=== PATIENT | male | born 1990 | race African-American/Black ===

== ENCOUNTER 2024-04-22 05:26 | Emergency (ER) | payer MEDICAID, SELFPAY ==
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
[2024-04-22 05:39] VITALS: BP 154/103; PULSE 97; RESP 18; TEMP 36.4; O2SAT 96; BMI 25.1
[2024-04-22 06:16] VITALS: BP 138/82; PULSE 86; RESP 16; TEMP 36.4; O2SAT 98
== END 2024-04-22 06:17 | disposition home or self-care (01) ==
PROVIDERS: Emergency Provider Emergency Medicine
DX: S01.511A Laceration without foreign body of lip, initial encounter (principal); Y04.1XXA Assault by human bite, initial encounter
CPT/HCPCS: 12013; 99281; 99283

== ENCOUNTER 2024-12-06 21:59 | Emergency (ER) | payer OTHER, SELFPAY ==
[2024-12-06 22:15] VITALS: BP 142/83; PULSE 110; RESP 16; O2SAT 96; BMI 24.4
[2024-12-06] MEDS: MAG HYDROX/ALUMINUM/SIMETH SUS 20 ML, LIDOCAINE VISCOUS 2% 15 ML PO (22:35)
[2024-12-06 22:42] LABS: Add Manual Diff / Slide Review NO; Basophils Absolute Auto 100 /uL (0-100); Basophils Percent Auto 0.6 % (0-2); Eosinophils Absolute Auto 100 /uL (0-450); Eosinophils Percent Auto 0.9 % (2-4); Hematocrit 50.7 % (41-53); Lymphocytes Absolute Auto 2500 /uL (1100-4500); Lymphocytes Percent Auto 23.9 % (25-40); Mean Corpuscular HGB Conc 33.5 % (30-36); Mean Corpuscular Hemoglobin 28.7 PG (26-34); Mean Corpuscular Volume 85.5 fL (80-100); Monocytes Absolute Auto 800 /uL (0-900); Monocytes Percent Auto 7.9 % (3-14); Neutrophils Absolute Auto 6800 /uL (1500-7000); Neutrophils Percent Auto 66.7 % (50-75); Platelet Count 258 X10^3/uL (150-400); Red Blood Cell Count 5.93 X10^6/uL (4.5-5.9); Red Cell Distribution Width 13.1 % (11.6-14.8); White Blood Cell Count 10.3 X10^3/uL (4.5-11.0)
[2024-12-06 22:49] LABS: Alanine Aminotransferase 49 IU/L (<50); Albumin 5.1 g/dL (3.5-5.0); Albumin Globulin Ratio 1.3 (1.0-2.8); Alkaline Phosphatase 81 U/L (38-126); Aspartate Aminotransferase 63 IU/L (17-59); Blood Urea Nitrogen 12 mg/dL (9-20); Carbon Dioxide 21 mmol/L (22-32); Chloride 98 mmol/L (98-107); Estimated Glomerular Filt Rate > 60 mL/min (>60); Glucose 139 mg/dL (70-100); HEMOLYSIS 26 (0-50); Lipase 113 U/L (23-300); Potassium 3.7 mmol/L (3.4-5.1); Sodium 137 mmol/L (137-145); Total Protein 9.1 g/dL (6.3-8.2)
--- NOTE | 2024-12-07 01:05 | DI.RAD.S_ITS ---
PROCEDURE: XR CHEST 1V INDICATIONS: Chest pain TECHNIQUE: One view of the chest was acquired. COMPARISON: None. FINDINGS AND IMPRESSION: No dense consolidation or pleural effusion on this single view study. Normal heart size. Unremarkable osseous structures. Dictated by: Kyle Jimenes M.D. on 12/07/2024 at 1:34 Approved by: Kyle Jimenes M.D. on 12/07/2024 at 1:34
--- NOTE | 2024-12-07 01:07 | ED.ABDPAIN ---
HPI - Abdominal Pain General Chief Complaint: Abdominal Pain Stated Complaint: chest pain Time Seen by Provider: 12/07/24 00:57 Source: patient Mode of arrival: Ambulatory History of Present Illness HPI narrative: 34-year-old male without any significant past medical history presents to the emergency department from home for evaluation of epigastric pain, this has been ongoing persistent for the past week. He states that he feels pressure/burning no nausea or vomiting no radiation nothing making it better or worse. He states that given persistent symptoms decided come into the ED for further evaluation treatment. Patient denies any other symptoms his headache visual disturbance shortness of breath fever chills or any other GI/ symptoms at this time. Related Data Previous Rx's Medication Instructions Recorded famotidine 20 mg tablet 20 mg PO DAILY 1 month #30 tabs 12/07/24 Allergies Allergy/AdvReac Type Severity Reaction Status Date / Time No Known Drug Allergies Allergy Verified 12/06/24 22:14 Review of Systems Review of Systems Narrative: General: Denies fever, chills, weight loss HEENT: Denies headache, eye drainage, eye irritation, head trauma, sore throat, voice change Cardiovascular: Positive chest pain, denies palpitations tachycardia Respiratory: Denies any shortness of breath, cough, wheeze, stridor GI/: Positive abdominal pain, denies nausea, vomiting, diarrhea, bright red blood per rectum, melanotic stools, urinary frequency, urinary retention, dysuria, hematuria MSK: Denies any joint pain, muscle pains, swelling Skin: Denies any rashes, lesions, discoloration Neuro: Denies any headache, lightheadedness, dizziness, fainting, weakness Psych: Denies SI/HI Patient History Social History Smoking Status: Never smoker Smoking Status: Never smoker alcohol intake frequency: a few times a week Exam Narrative Exam Narrative: General: Cooperative, comfortable, well-developed, not in acute distress HEENT: Normocephalic, atraumatic, PERRLA, normal sclera, eyelids normal, Neck: Active full range of motion, atraumatic Chest: Normal to inspection, negative crepitus, no overlying erythema ecchymosis Respiratory: Normal respiratory effort, not in acute respiratory distress, clear to auscultation bilaterally negative cough, wheeze, tachypnea, rhonchi, rales Cardiology: Regular rate rhythm negative gallop, murmur, rubs GI/: Normal to inspection, soft, nonrigid, mild tenderness to palpation epigastric region, exam deferred MSK: Full range of active range of motion of all 4 extremities, atraumatic Skin: No rashes lesions noted Neuro: Alert awake oriented x3, moves all 4 extremities spontaneously, cranial nerves intact, able to answer all questions appropriately follows commands appropriately Psych: Cooperative, negative suicidal or homicidal ideations Initial Vital Signs Initial Vital Signs: Vital Signs Pulse Rate 110 H 12/06/24 22:15 Respiratory Rate 16 12/06/24 22:15 Blood Pressure 142/83 H 12/06/24 22:15 Pulse Oximetry 96 12/06/24 22:15 Oxygen Delivery Method Room Air 12/06/24 22:15 Course Orders Ordered: ED Orders 12/06/24 22:29 Complete Blood Count AUTO DIFF Stat Comprehensive Metabolic Panel Stat Lipase Stat 12/07/24 01:05 CXR [XR chest 1V] Stat Troponin & CK Cardiac Panel Stat 12/07/24 01:06 CT abdomen pelvis w con Stat Covid-19 + FLU A/B + RSV - PCR Stat MAG [Magnesium] Stat EKG-12 Lead Stat Ondansetron HCl (Ondansetron 4 Mg/2 Ml Inj) 4 mg IV NOW PRN PRN Reason: Nausea And Vomiting Ondansetron HCl (Ondansetron 4 Mg Odt) 4 mg PO NOW PRN PRN Reason: Nausea And Vomiting Discontinued Medications Al Hydrox/Mg Hydrox/Simethicone 20 ml/ Lidocaine HCl 15 ml 0 ml PO NOW ONE Stop: 12/06/24 22:31 Last Admin: 12/06/24 22:35 Dose: 35 ml Documented By: Famotidine (Famotidine 20 Mg/2 Ml Vial) 20 mg IV NOW ONE Stop: 12/07/24 01:07 Last Admin: 12/07/24 01:29 Dose: 20 mg Documented By: Sodium Chloride (Normal Saline 0.9%) 1,000 mls @ 1,000 mls/hr IV BOLUS ONE Stop: 12/07/24 02:05 Last Infusion: 12/07/24 02:06 Dose: Infused Documented By: Admin: 12/07/24 01:28 Dose: 1,000 mls/hr Documented By: AB Vital Signs Vital signs: Vital Signs - 8 hr 12/06/24 22:15 12/07/24 01:08 Pulse Rate 110 H 62 Respiratory Rate 16 16 Blood Pressure 142/83 H 121/80 Pulse Oximetry 96 99 Oxygen Delivery Method Room Air Room Air MDM - Abdominal Pain Differential Diagnosis Differential diagnosis: Likely gastroenteritis and other (ACS, pneumonia, GERD, pancreatitis, electrolyte abnormality) Lab Data 12/06/24 22:29 12/06/24 22:29 Labs: Lab Results 12/06/24 Range/Units 22:29 WBC 10.3 (4.5-11.0) X10^3/uL RBC 5.93 H (4.5-5.9) X10^6/uL Hgb 17.0 (13.5-17.5) g/dL Hct 50.7 (41-53) % MCV 85.5 (80-100) fL MCH 28.7 (26-34) PG MCHC 33.5 (30-36) % RDW 13.1 (11.6-14.8) % Plt Count 258 (150-400) X10^3/uL Neut % (Auto) 66.7 (50-75) % Lymph % (Auto) 23.9 L (25-40) % Mclennan % (Auto) 7.9 (3-14) % Eos % (Auto) 0.9 L (2-4) % Baso % (Auto) 0.6 (0-2) % Neut # (Auto) 6800 (5590-3368) /uL Lymph # (Auto) 2500 (6846-3755) /uL Mclennan # (Auto) 800 (0-900) /uL Eos # (Auto) 100 (0-450) /uL Baso # (Auto) 100 (0-100) /uL Sodium 137 (137-145) mmol/L Potassium 3.7 (3.4-5.1) mmol/L Chloride 98 (98-107) mmol/L Carbon Dioxide 21 L (22-32) mmol/L BUN 12 (9-20) mg/dL Creatinine 1.00 (0.66-1.25) mg/dL Estimated GFR > 60 (>60) mL/min BUN/Creatinine Ratio 12.0 (6-22) Glucose 139 H (70-100) mg/dL Calcium 10.0 (8.4-10.2) mg/dL Magnesium 2.1 (1.6-2.3) mg/dL Total Bilirubin 1.0 (0.2-1.3) mg/dL AST 63 H (17-59) IU/L ALT 49 (<50) IU/L Alkaline Phosphatase 81 (38-126) U/L Total Creatine Kinase 125 (55-170) U/L Troponin I < 0.012 (0.01-0.034) ng/mL Total Protein 9.1 H (6.3-8.2) g/dL Albumin 5.1 H (3.5-5.0) g/dL Globulin 4.0 (1.7-4.1) g/dL Albumin/Globulin Ratio 1.3 (1.0-2.8) Lipase 113 (23-300) U/L Point of care testing: Urine Dip Bedside Urine Glucose Negative Bedside Urine Bilirubin - Negative Bedside Urine Ketone +/- 5 Urine Specific [place] 1.015 Bedside Urine Occult Blood - Negative Bedside Urine pH 6 Bedside Urine Protein - Negative Bedside Urine Urobilinogen - Negative Bedside Urine Nitrite - Negative Bedside Urine Leukocytes - Negative Esterase Imaging Data Chest x-ray: Radiologist's Impression: [place] [address] XRay Report Signed Patient: Dixon Haynes MR#: [id number] : 1990 Acct:[id number] Age/Sex: 34 / M Date of Service: 12/07/24 Loc: ED Accession Number: [id number] Procedure: XR chest 1V Ordering Provider: Momo Deleon D.O. PROCEDURE: XR CHEST 1V INDICATIONS: Chest pain TECHNIQUE: One view of the chest was acquired. COMPARISON: None. FINDINGS AND IMPRESSION: No dense consolidation or pleural effusion on this single view study. Normal heart size. Unremarkable osseous structures. CT scan - abdomen/pelvis: Radiologist's Impression: [address] [address] [address] Scan Report Signed Patient: Dixon Haynes MR#: [id number] : 1990 Acct:[id number] Age/Sex: 34 / M Date of Service: 12/07/24 Loc: ED Accession Number: [id number] Procedure: CT abdomen pelvis w con Ordering Provider: Momo Deleon D.O. PROCEDURE: CT ABDOMEN PELVIS W CON INDICATIONS: Epigastric pain TECHNIQUE: After the administration of intravenous contrast, axial sections acquired from the lung bases to the pubic symphysis. Coronal and sagittal reformats were performed. For radiation dose reduction, the following was used: automated exposure control, adjustment of mA and/or kV according to patient size. COMPARISON: None. FINDINGS: Image quality: Diagnostic Lower chest: Unremarkable lung bases Normal heart size. Liver: Suspect hepatic steatosis Gallbladder and biliary system: Unremarkable, nondilated Pancreas: No ductal dilation Spleen: Nonenlarged Adrenals: No discrete nodules Kidneys: No solid mass. No hydronephrosis. Vessels and lymph nodes: The main portal vein is patent. No abdominal aortic aneurysm. No pathologic lymphadenopathy by size criteria. Bowel and peritoneum: No small bowel obstruction. No drainable ascites or abscess. No findings of active colitis. The appendix is nondilated. Body wall: Mild rectus diastasis Pelvis: Bladder and prostate are unremarkable on limited CT evaluation Bones: No aggressive appearing focal osseous finding IMPRESSION: No acute abdominal pelvic abnormality. Possible hepatic steatosis. Other findings above. ECG Data Interpretation: EKG interpreted by ED physician sinus 93 beats per minute QTC [address] changes no STEMI MDM Narrative Medical decision making narrative: Patient is a 34-year-old male without any significant past medical history presents for 1 week of epigastric pain described as burning pressure. Patient had lab work imaging EKG performed here in the emergency department, EKG nonischemic in nature, patient with heart score of 0, chest x-ray without any acute cardiopulmonary abnormalities Darren negative, CT scan without any acute findings, lab work unremarkable, symptoms improved after administration of GI cocktail Pepcid symptoms more likely secondary to GERD/GI in nature, patient well-appearing nontoxic, did instruct patient to follow up with primary care GI and Cardiology in outpatient setting, we will start patient on PPI in the meantime, strict return precautions were given he verbalized understanding of this and agrees to being discharged home with outpatient follow up Discharge Plan Departure Patient Disposition: Home Clinical Impression: Acute epigastric pain Activity Restrictions/Additional Instructions: Please follow up with Cardiology, GI and your primary care doctor Please read the discharge instructions sheet carefully and bring all papers to all doctor follow-up visits, as it may contain information that your doctor may want to see. Disease processes change and evolve, if your symptoms worsen or if you develop any new symptoms that are concerning to you please return for evaluation. Your evaluation today does not show any evidence of any life-threatening/serious illnesses requiring admission to the hospital or surgery. Please follow-up with your doctor for re-evaluation in approximately 1 day. Seek immediate medical attention for any worrisome symptoms. *If you do not have a primary care provider please contact the [facility] Resource line at [phone]. They will ask some questions about your medical history and help get you set up with a doctor in the community. Prescriptions: New famotidine 20 mg tablet 20 mg PO DAILY 30 Days Qty: 30 0RF Referrals: Dash Gray MD [Non-Staff] - Cynthia Crain MD [Physician] - Stand Alone Forms: Patient Portal/API/Survey
[2024-12-07 01:08] VITALS: BP 121/80; PULSE 62; RESP 16; O2SAT 99
[2024-12-07] MEDS: SODIUM CHLORIDE 0.9% 1,000 ML 1000 ML IV (01:28)
[2024-12-07] MEDS: FAMOTIDINE 20 MG/2 ML VIAL IV (01:29)
[2024-12-07 01:31] LABS: Creatine Kinase 125 U/L (55-170); Magnesium 2.1 mg/dL (1.6-2.3)
--- NOTE | 2024-12-07 01:34 | EKG_ITS ---
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
[2024-12-07 01:43] LABS: Troponin I < 0.012 ng/mL (0.01-0.034)
[2024-12-07 02:45] VITALS: BP 134/97; PULSE 96; RESP 14; O2SAT 97
== END 2024-12-07 02:46 | disposition home or self-care (01) ==
PROVIDERS: Emergency Provider Student in an Organized Health Care Education/Training Program
DX: R10.13 Epigastric pain (principal)
CPT/HCPCS: 36415; 71045; 74177; 80053; 81003; 82550; 83690; 83735; 84484; 85025; 93005; 96361; 96374; 99284; Q9967